=== PATIENT | male | born 1940 | race Caucasian/White ===

== ENCOUNTER 2025-04-11 16:23 | Inpatient (IN) | payer MEDICARE, MEDICAID ==
[~2025-04-11] VITALS: Ht 175.3 cm; Wt 106.0 kg
[~2025-04-11 16:23] MED LIST: ATOR40TA28 PO; CELE200 PO; GABA-1216 PO; PANT-31 PO
[2025-04-11] MEDS ORDERED: LORazepam 2 MG/ML VIAL ONE (18:20)
[2025-04-11] MEDS ORDERED: ATOR20TA65 PO (18:28)
[2025-04-11] MEDS ORDERED: RIVA20TA PO (18:28)
[2025-04-11] MEDS ORDERED: GABA-529 PO (18:28)
[2025-04-11] MEDS ORDERED: ALBU18HF12 IH (18:28)
[2025-04-11] MEDS ORDERED: HYDR10TA31 PO (18:28)
[2025-04-11] MEDS ORDERED: ASPI-1450 PO (18:28)
[2025-04-11] MEDS ORDERED: FAMO20 PO (18:28)
[2025-04-11] MEDS ORDERED: AMLO10TA55 PO (18:28)
[2025-04-11] MEDS ORDERED: LISI20TA24 PO (18:28)
[2025-04-11] MEDS: LORazepam 2 MG/ML VIAL IM ONE (18:29)
[2025-04-11 18:49] LABS: PLATELET COUNT (AUTO) 346 K/uL (150-450); RED BLOOD CELL COUNT(AUTO) 4.62 MIL/uL (4.50-5.90); RED CELL DISTRIBUTION WIDTH 14.4 % (11.5-14.5); WHITE BLOOD COUNT (AUTO) 9.7 K/uL (4.5-11.0)
[2025-04-11 18:53] LABS: CALCIUM, TOTAL 8.6 mg/dL (8.8-10.5); CREATININE 1.71 mg/dL (0.60-1.30); GLOMERULAR FILTR. RATE CALC 38.0 mL/min (>60); GLUCOSE,RANDOM 83.0 mg/dL (70-110); SODIUM SERUM 141.0 mmol/L (136-145); UREA NITROGEN, BLOOD 36.0 mg/dL (7-18)
[2025-04-11 19:58] LABS: COVID AG,FIA SOURCE NASAL SWAB
[2025-04-11 20:20] LABS: SARS-COV2 (COVID) ANTIGEN,FIA Negative (Negative)
[2025-04-11] MEDS: ZOLPIDEM TARTRATE 10 MG TABLET PO PRN (21:53)
[2025-04-12 03:04] VITALS: BP 110/70; PULSE 80; RESP 18; TEMP 97.5; O2SAT 99
[2025-04-12 03:20] VITALS: BP 110/70; PULSE 70; RESP 18; TEMP 97.5; O2SAT 99
[2025-04-12] MEDS ORDERED: IBUPROFEN 600 MG TABLET PO PRN (08:15)
[2025-04-12] MEDS ORDERED: ONDANSETRON 4 MG TABLET PO PRN (08:15)
[2025-04-12] MEDS ORDERED: ACETAMINOPHEN 325 MG TABLET PO PRN (08:15)
[2025-04-12] MEDS ORDERED: DOCUSATE SODIUM 100 MG CAPSULE PO PRN (08:15)
[2025-04-12] MEDS ORDERED: BENZOCAINE/MENTHOL [CEPACOL] LOZENGE PO PRN (08:15)
[2025-04-12] MEDS ORDERED: MAG HYDROX/ALUMINUM HYD/SIMETH ES 30 ML SUSPENSION UDCUP PO PRN (08:15)
[2025-04-12] MEDS ORDERED: LOPERAMIDE HCL 2 MG CAPSULE PO PRN (08:15)
[2025-04-12] MEDS ORDERED: MAGNESIUM HYDROXIDE SUSPENSION 30 ML UDCUP PO PRN (08:15)
[2025-04-12] MEDS ORDERED: ALBUTEROL SULFATE HFA 90 MCG/PUFF 8 GM INHALER IH PRN (08:15)
[2025-04-12] MEDS ORDERED: PETROLATUM,WHITE 28 GM JELLY TP PRN (08:15)
[2025-04-12] MEDS ORDERED: BACITRACIN 28 GM OINTMENT TP PRN (08:15)
[2025-04-12 09:08] VITALS: BP 107/70; PULSE 87; RESP 16; TEMP 97.9; O2SAT 97
[2025-04-12] MEDS: ASPIRIN 81 MG CHEWABLE TABLET PO SCH (10:22)
[2025-04-12] MEDS: FAMOTIDINE 20 MG TABLET PO SCH (10:22)
[2025-04-12] MEDS: ATORVASTATIN CALCIUM 20 MG TABLET PO SCH (10:22)
[2025-04-12 10:28] VITALS: BP 107/69; PULSE 68; RESP 18; TEMP 97.8; O2SAT 97
[2025-04-12 20:05] VITALS: BP 115/83; PULSE 89; RESP 18; TEMP 98.9; O2SAT 97
[2025-04-12] MEDS: RIVAROXABAN 15 MG TABLET PO SCH (20:34)
[2025-04-13 07:41] LABS: PLATELET COUNT (AUTO) 290 K/uL (150-450); RED BLOOD CELL COUNT(AUTO) 4.31 MIL/uL (4.50-5.90); RED CELL DISTRIBUTION WIDTH 14.0 % (11.5-14.5); WHITE BLOOD COUNT (AUTO) 8.5 K/uL (4.5-11.0)
[2025-04-13 08:18] LABS: ASPARTATE AMINOTRANSFERASE 23.0 U/L (15-37); CALCIUM, TOTAL 8.2 mg/dL (8.8-10.5); CHOL/HDL RATIO 2.3 (4.2-7.3); CREATININE 1.48 mg/dL (0.60-1.30); GLOMERULAR FILTR. RATE CALC 45.0 mL/min (>60); GLUCOSE,RANDOM 85.0 mg/dL (70-110); LDL CHOL (CALC.) 26.0 mg/dL (0-130); SODIUM SERUM 144.0 mmol/L (136-145); TOTAL PROTEIN, SERUM 6.7 g/dL (6.4-8.2); UREA NITROGEN, BLOOD 30.0 mg/dL (7-18)
[2025-04-13 10:13] VITALS: BP 114/59; PULSE 75; RESP 17; TEMP 97.9; O2SAT 98
[2025-04-13] MEDS: DIVALPROEX SODIUM 250 MG DR TABLET PO SCH (17:33)
[2025-04-13] MEDS: GABAPENTIN 100 MG CAPSULE PO SCH (17:34)
[2025-04-13 21:47] VITALS: RESP 18
[2025-04-13] MEDS ORDERED: MENTHOL/ZINC OXIDE 113 GM OINTMENT TP PRN (22:15)
[2025-04-14] MEDS: NYSTATIN 15 GM POWDER BOTTLE TP SCH (08:55)
[2025-04-14 09:34] VITALS: BP_SYST 78; PULSE 74; RESP 18; TEMP 98; O2SAT 98
[2025-04-14 20:52] VITALS: BP 111/58; PULSE 64; RESP 18; TEMP 97.8; O2SAT 97
[2025-04-15 10:34] VITALS: BP 107/82; PULSE 60; RESP 18; TEMP 97.8; O2SAT 96
[2025-04-15 21:34] VITALS: BP 105/80; PULSE 62; RESP 18; TEMP 98.1; O2SAT 96
[2025-04-16 08:53] VITALS: BP 97/64; PULSE 77; RESP 18; TEMP 98; O2SAT 95
[2025-04-16 21:20] VITALS: BP 102/65; PULSE 70; RESP 18; TEMP 98.4; O2SAT 96
[2025-04-17 10:03] VITALS: BP 114/81; PULSE 78; RESP 18; TEMP 97.7; O2SAT 97
[2025-04-17] MEDS ORDERED: DIVA-111 PO (10:54)
[2025-04-17] MEDS ORDERED: ATOR20TA PO (10:57)
[2025-04-17] MEDS ORDERED: NYST30CR9 TP (10:58)
[2025-04-17] MEDS ORDERED: RIVA15TA PO (11:01)
[2025-04-17 21:01] VITALS: BP 120/65; PULSE 60; RESP 18; TEMP 97.5; O2SAT 97
== END 2025-04-18 16:41 | DRG 885 ==
LOC: EMS 16:23 → 3EX 04-12 01:37
PROVIDERS: ADMIT Psychiatry & Neurology Psychiatry; ATTEND Psychiatry & Neurology Psychiatry
PROC: GZHZZZZ Group Psychotherapy (ICD-10-PCS; principal; 2025-04-13)
PROC: GZ58ZZZ Individual Psychotherapy, Cognitive-Behavioral (ICD-10-PCS; 2025-04-13)
PROC: GZ56ZZZ Individual Psychotherapy, Supportive (ICD-10-PCS; 2025-04-13)
DX: F20.0 Paranoid schizophrenia (principal); N18.30 Chronic kidney disease, stage 3 unspecified; I48.20 Chronic atrial fibrillation, unspecified; F03.918 Unspecified dementia, unspecified severity, with other behavioral disturbance; F03.94 Unspecified dementia, unspecified severity, with anxiety; F03.911 Unspecified dementia, unspecified severity, with agitation; R73.9 Hyperglycemia, unspecified; I12.9 Hypertensive chronic kidney disease with stage 1 through stage 4 chronic kidney disease, or unspecified chronic kidney disease; G47.00 Insomnia, unspecified; J44.9 Chronic obstructive pulmonary disease, unspecified; K21.9 Gastro-esophageal reflux disease without esophagitis; R32 Unspecified urinary incontinence; G62.9 Polyneuropathy, unspecified; Z20.822 Contact with and (suspected) exposure to COVID-19; Z79.899 Other long term (current) drug therapy; E78.00 Pure hypercholesterolemia, unspecified; Z91.148 Patient's other noncompliance with medication regimen for other reason
CPT/HCPCS: 80048; 80053; 80061; 83036; 84436; 84443; 85025; 87081; 92610; 97116; 97162; 97166; 97530; 99285; G0378; G0480; J1200; J1630; J2060